=== PATIENT | female | born 1975 | race Caucasian/White ===

== ENCOUNTER 2020-04-09 19:00 | Emergency (ER) | payer OTHER ==
[~2020-04-09] VITALS: Ht 165.1 cm; Wt 98.9 kg
[2020-04-09] MEDS ORDERED: NORCO 5-325 TA1 EAC2 PO (19:43)
[2020-04-09 19:54] VITALS: BP 132/78
== END 2020-04-09 19:54 | disposition home or self-care (01) ==
LOC: M.ERS 19:00
DX: S86.811A Strain of other muscle(s) and tendon(s) at lower leg level, right leg, initial encounter (principal); Z98.51 Tubal ligation status; X50.1XXA Overexertion from prolonged static or awkward postures, initial encounter; Y93.89 Activity, other specified; Y92.89 Other specified places as the place of occurrence of the external cause; Y99.8 Other external cause status